=== PATIENT | female | born 1990 | race Caucasian/White ===

== ENCOUNTER 2016-10-05 09:52 | Inpatient (IN) | payer MEDICAID ==
--- OUTSIDE RECORDS SUMMARY | 2016-10-05 09:56 | XMS REPORT | Continuity of Care Document ---
:1990 Author Organization [facility] ([facility]) Address [place] [address] Phone [phone] Care Team Providers Name Role Phone Derrick Garcia Primary Care Provider [phone] Source Comments This disclosure is being made pursuant to the Care Everywhere program, applicable federal and state laws, and may not contain all informaitonavailable regarding this patient.[facility] ([facility]) Active Allergies and Adverse Reactions Allergen Noted Date Severity Reactions Comments Ibuprofen 09/15/2012 Nausea & Vomiting Prednisone 09/15/2012 Nausea & Vomiting,Diarrhea Current Medications Prescription Sig. Disp. Refills Start Date End Date Status multivitamin with Active minerals PO metoclopramide 5 mg tablet Take 5 mg by mouth Active before meals and at bedtime as needed. Active Problems Problem Noted Date Family history of genetic disorder 04/14/2016 Recurrent loss, antepartum condition or complication 04/14/2016 Back pain 09/20/2012 Pelvic pain 09/20/2012 Migraines 09/20/2012 Currently Estimated Date of Delivery Comments Yes 10/21/2016 Based on Last Menstrual Period Immunizations Name Dates Previously Given Next Due Rho (D) Immune Globulin, IM (Rhogam) 04/13/2016 Social History Tobacco Use Types Packs/Day Years Used Date Former Smoker 1 5 Quit: 07/11/2006 Smokeless Tobacco: Never Used Last Filed Vital Signs Vital Sign Reading Time Taken Blood Pressure 112/74 04/13/2016 3:30 PM CDT Pulse 114 04/13/2016 3:30 PM CDT Temperature 35 C (95 F) 04/13/2016 3:30 PM CDT Respiratory Rate 16 09/20/2012 2:39 PM CDT Height 1.626 m (5' 4") 04/13/2016 3:30 PM CDT Weight 51.8 kg (114 lb 3.2 oz) 04/13/2016 3:30 PM CDT Body Mass Index 19.59 04/13/2016 3:30 PM CDT Oxygen Saturation 100% 09/20/2012 2:39 PM CDT Plan of Care Health Maintenance Due Date Last Done Comments Hepatitis B Vaccine (1 of 3 - Primary Series) 1990 Tdap Vaccine 1999 Cervical Cancer Screening 2006 Lipid Disorder Screening 2006 MMR Vaccine 2006 Td Vaccine 2006 Varicella Vaccine (1 of 2 - Adult - No Evidence of 2006 Immunity) Influenza Vaccine: Seasonal (#1) 02/09/2016 Results from Last 3 Months Not on file
[2016-10-05] MEDS ORDERED: ONDANSETRON HCL/PF 2 MG/ML VIAL IV PRN (10:19)
[2016-10-05] MEDS ORDERED: BUTORPHANOL TARTRATE 2 MG/ML VIAL IV PRN (10:19)
[2016-10-05] MEDS ORDERED: RINGERS SOLUTION,LACTATED 1,000 ML IV PRN (10:19)
[2016-10-05] MEDS ORDERED: OXYTOCIN/DEXTROSE 5%-WATER 30 UNITS/500 ML BAG IV ONE ×2 (10:19→16:36)
[2016-10-05] MEDS ORDERED: LIDOCAINE HCL 50 ML VIAL PERI PRN (10:19)
[2016-10-05] MEDS ORDERED: DEXTROSE 5%-LACTATED RINGERS 1,000 ML IV PRN (10:19)
[2016-10-05] MEDS ORDERED: RINGERS SOLUTION,LACTATED 1,000 ML IV ONE (10:19)
[2016-10-05 11:07] LABS: Cocaine Ur Negative (NEGATIVE); Urine Barbiturate Negative (NEGATIVE); Urine Benzodiazepines Negative (NEGATIVE); Urine Opiates Negative (NEGATIVE); Urine PCP Negative (NEGATIVE); Urine THC Negative (NEGATIVE)
[2016-10-05] MEDS ORDERED: BENZOCAINE/MENTHOL 81 SPRAY CAN TP PRN (16:36)
[2016-10-05] MEDS ORDERED: SENNOSIDES 8.6 MG TABLET PO PRN (16:36)
[2016-10-05] MEDS ORDERED: diphenhydrAMINE HCL 25 MG CAPSULE PO PRN (16:36)
[2016-10-05] MEDS ORDERED: GLYCERIN/WITCH HAZEL LEAF 40 APPL BOX TP PRN (16:36)
[2016-10-05] MEDS ORDERED: BISACODYL 10 MG SUPP.RECT RC PRN (16:36)
[2016-10-05] MEDS ORDERED: ACETAMINOPHEN 500 MG TABLET PO PRN (16:37)
--- NOTE | 2016-10-05 16:40 | OR ---
Operative Report - Dictated Report Narrative: Spontaneous Vaginal Delivery Viable female with APGARS of 8 at 1 minute and 9 at 5 minutes. She delivered at 1619. Presentation was DAYSI. The anterior shoulder delivered with gentle downward traction followed by the posterior shoulder and a nuchal hand. The baby was placed on the maternal abdomen and dried and stimulated and spontaneous cry was noted. The cord was clamped and cut after approximately 60 seconds. Weight: 7 pounds 2.9 ounces or 3258 g Placenta was delivered spontaneously and intact. No lacerations were noted. Estimated blood loss: 200 ml Mother and baby tolerated delivery well. History for Definition: * The number of deliveries resulting in a live the patient experienced prior to current hospitalization * The previous delivery of live twins or any live multiple gestation is considered one live event. *If primagravida or nulliparous is documented select zero for the number of previous live births. Live Events: 3
[2016-10-05] MEDS: oxyCODONE HCL/ACETAMINOPHEN 1 TAB TABLET PO PRN (16:45)
[2016-10-05] MEDS: DOCUSATE SODIUM 100 MG CAPSULE PO SCH (22:36)
[2016-10-06] MEDS: oxyCODONE HCL/ACETAMINOPHEN 1 TAB TABLET PO PRN ×3 (02:38→21:23)
[2016-10-06] MEDS: DOCUSATE SODIUM 100 MG CAPSULE PO SCH ×2 (09:12→21:24)
--- NOTE | 2016-10-06 12:13 | PN ---
Progess Note - Interim Narrative: 10/06/16 12:12 progress note Subjective: The patient is doing well. She is ambulating, voiding, tolerating by mouth. She has minimal pain and moderate lochia. Objective: General: No acute distress Abdomen: Soft, nontender, fundus is firm just below the umbilicus Extremities: minimal edema, nontender to palpation Assessment and plan: day 1 Feeding: [Breast Pain: Controlled with by mouth medication control: Nexplanon Routine care.
[2016-10-07] MEDS: oxyCODONE HCL/ACETAMINOPHEN 1 TAB TABLET PO PRN ×2 (04:29→09:30)
--- NOTE | 2016-10-07 08:48 | PN ---
Progess Note - Interim Narrative: 10/07/16 08:45 progress note Subjective: The patient is doing well. She is ambulating, voiding, tolerating by mouth. She has minimal pain and moderate lochia. Objective: General: No acute distress Abdomen: Soft, nontender, fundus is firm just below the umbilicus Extremities: minimal edema, nontender to palpation Assessment and plan: day 2 Feeding: Breast Pain: Controlled with by mouth medication control: nexplanon
[2016-10-07] MEDS: DOCUSATE SODIUM 100 MG CAPSULE PO SCH (09:29)
[2016-10-07 10:39] VITALS: BP 120/84
== END 2016-10-07 11:51 | disposition home or self-care (01) | DRG 775 ==
LOC: OB 09:52
PROVIDERS: ADMIT Obstetrics & Gynecology Gynecologic Oncology; ATTEND Obstetrics & Gynecology Gynecologic Oncology
PROC: 10E0XZZ Delivery of Products of Conception, External Approach (ICD-10-PCS; principal; 2016-10-05)
PROC: 4A1HXCZ Monitoring of Products of Conception, Cardiac Rate, External Approach (ICD-10-PCS; 2016-10-05)
DX: O69.81X0 Labor and delivery complicated by cord around neck, without compression, not applicable or unspecified (principal); Z87.442 Personal history of urinary calculi; Z3A.38 38 weeks gestation of pregnancy; Z37.0 Single live birth

== ENCOUNTER 2017-04-20 17:08 | Emergency (ER) | payer MEDICAID ==
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
[2017-04-20 18:22] LABS: Hematocrit 34.5 % (37.0-47.0); Hemoglobin 11.8 gm/dL (12.5-16.0); Mean Cell Volume 84.4 fl (78-100); Mean Corpuscular Hemoglobin 28.9 pg (27-31); Mean Corpuscular Hgb Conc 34.2 g/dl (32-36); Mean Platelet Volume 9.7 fl (6.0-9.5); Neutrophil # 2.5 K/mm3 (1.3-6.0); Neutrophil % 75.5 % (42-75.0); Platelet Count 194 K/mm3 (150-450); Red Blood Count 4.09 M/mm3 (4.2-5.4); Red Cell Distribution Width 12.5 % (11.5-14.0); White Blood Count 3.4 K/mm3 (4.0-10.5)
[2017-04-20 18:40] LABS: Albumin * 3.5 gm/dl (3.4-5.0); Anion Gap 11.9 mmol/L (6.8-13.8); BUN/Creatinine Ratio 6.8 (9.0-21.6); Bilirubin, Total 0.2 mg/dL (0.0-1.1); Ca. Corrected For Albumin 8.4 mg/dL (8.4-10.2); Calcium * 8.3 mg/dL (7.9-10.9); Carbon Dioxide 26.5 mmol/L (24-32.6); Potassium 3.4 mmol/L (3.4-4.6); Total Protein 6.9 gm/dL (6.2-8.2)
[2017-04-20] MEDS ORDERED: KETOROLAC TROMETHAMINE 60 MG/2 ML VIAL IM ONE (18:45)
[2017-04-20] MEDS ORDERED: NORMAL SALINE 1,000 ML IV ONE (18:45)
[2017-04-20] MEDS ORDERED: KETOROLAC TROMETHAMINE 30 MG/ML VIAL IV ONE (19:31)
[2017-04-20] MEDS ORDERED: KETOROLAC TROMETHAMINE 30 MG/ML VIAL ONE (19:31)
[2017-04-20 19:32] LABS: Urine Bilirubin Negative (NEGATIVE); Urine Blood 250 /ul (NEGATIVE); Urine Ketone Negative (NEGATIVE); Urine Protein 100 mg/dL (NEGATIVE); Urine Specific Gravity <=1.005 SP.GR. (1.005-1.010); Urine Urobilinogen Normal (NORMAL)
[2017-04-20 19:44] LABS: Cocaine Ur Negative (NEGATIVE); Urine Barbiturate Negative (NEGATIVE); Urine Benzodiazepines Negative (NEGATIVE); Urine Opiates Negative (NEGATIVE); Urine PCP Negative (NEGATIVE); Urine THC Negative (NEGATIVE)
[2017-04-20 19:54] LABS: Urine Appearance Cloudy; Urine Color Red; Urine Nitrite Positive (NEGATIVE)
[2017-04-20 19:55] LABS: Urine Bacteria 1+; Urine RBC TRACE /hpf (0-5); Urine WBC TRACE /hpf (0-5)
[2017-04-20] MEDS ORDERED: SULFAMETHOXAZOLE/TRIMETHOPRIM 1 TAB TABLET PO ONE (22:29)
[2017-04-20] MEDS ORDERED: SULFAMETHOXAZOLE/TRIMETHOPRIM 1 TAB TABLET ONE (22:31)
[2017-04-20 22:47] VITALS: BP 97/53
== END 2017-04-20 22:40 | disposition home or self-care (01) ==
LOC: ER 17:08
DX: N10 Acute pyelonephritis (principal); Z87.440 Personal history of urinary (tract) infections; Z87.442 Personal history of urinary calculi; F17.200 Nicotine dependence, unspecified, uncomplicated